=== PATIENT | female | born 2000 | race Caucasian/White ===

== ENCOUNTER 2024-07-10 17:47 | Emergency (ER) | payer BC, SELFPAY ==
[2024-07-10 17:54] VITALS: BP 132/79
--- NOTE | 2024-07-10 20:05 | ED.GENMED ---
History of Present Illness
General
Chief Complaint: Throat Problem
Source: patient
Exam Limitations: none
Time Seen by Provider: 07/10/24 19:44
Nursing documentation reviewed up to this point in time: agreed with
History of Present Illness
History of Present Illness:
24 yo female here for sore throat. Sore throat started one week ago, went to 3 days ago and had neg Strep and started on Z pack, she has one day left and throat is getting slightly worse. + swollen glands right side > left. Some relief with
Ibuprofen. Denies fever, chills, no significant fatigue. No difficulty swallowing, speaking with hot potato voice.
Past History
Past History
ED Past Medical History: Other (hx SV block)
ED Past Surgical History: Cardiac (Pacemaker 2013 for SV block)
Social History
Tobacco: Non-smoker
Review of Systems
Review of Systems
Allergies reviewed?: Yes
All Other Systems: ROS reviewed and negative except as documented in HPI and ROS
Constitutional: Denies fever or fatigue
EENT: Reports sore throat (with swollen lymph nodes)
Respiratory: Denies trouble breathing
Cardiac: Denies chest pain
ABD/GI: Denies abdominal pain, nausea, vomiting, diarrhea or anorexia
: Denies dysuria
Musculoskeletal: Reports no symptoms
Skin: Reports no symptoms
Neurological: Reports no symptoms
Phy Exam
Physical Exam
Physical Exam:
GENERAL: No acute distress. A&Ox3.
CONSTITUTIONAL: Afebrile.
EYES: clear, conjunctivae normal
ENMT: moist mucus membranes, Pharynx with R>L edematous tonsils with white exudate, malodorous. Swallowing well, Hot potato voice.
Neck: R > L anterior cervical lymphadenopathy
RESPIRATORY: Regular respirations, nonlabored, lungs clear.
CARDIOVASCULAR: Regular rate and rhythm, no murmurs, no rubs.
GI: Soft, nontender, normal BS
MUSCULOSKELETAL: Moves with ease. Well perfused.
SKIN: Warm, dry, pink
PSYCH: Normal mood and affect. Well kept, interactive and appropriate
NEUROLOGIC: Awake, alert and oriented. No focal neurological deficits
Course
Orders/Labs/Results
Orders:
Orders
07/10/24 20:10
Monotest Urgent
Rapid Strep Group A Urgent
MAIKOL Source: Throat/Pharynx
Specimen Description:
Date Specimen was Collected: 07/10/24
Time Specimen was Collected: 20:07
Throat Culture [Throat Culture, Comprehensive] Urgent
MAIKOL Source: Throat/Pharynx
Specimen Description:
Date Specimen was Collected: 07/10/24
Time Specimen was Collected: 20:07
07/10/24 21:08
Dexamethasone [Decadron] 10 mg PO NOW STA
Vital Signs
Initial and Last Documented VS:
Initial Vital Signs
Temp Pulse Resp BP Pulse Ox
98.6 F 106 20 132/79 100
07/10/24 17:54 07/10/24 17:54 07/10/24 17:54 07/10/24 17:54 07/10/24 17:54
Last Documented Vital Signs
Temp Pulse Resp BP Pulse Ox
98.6 F 94 17 132/79 99
07/10/24 17:54 07/10/24 21:27 07/10/24 21:27 07/10/24 17:54 07/10/24 21:27
MDM/Problems Addressed
Differential Diagnosis Includes:
Mononucleosis, strep throat, retropharyngeal abscess, peritonsillar abscess
MDM/Problems Addressed:
24 yo female here for sore throat. Sore throat started one week ago, went to UC 3 days ago and had neg Strep and started on Z pack, she has one day left and throat is getting slightly worse. + swollen glands right side > left. Some relief with
Ibuprofen. Denies fever, chills, no significant fatigue. No difficulty swallowing, speaking with hot potato voice.
Both tonsils are swollen with exudate and malodorous. No sign of abscess. R>L anterior cervical lymphadenopathy
Afebrile, NAD
Monotest neg
Rapid strep
*Critical Care Note
Total Time (30-74mins, 75-104mins- exclusive of procedures): Not Applicable
ED Attending Note
-
Portions of this chart may have been created with voice recognition software.� Occasional wrong word or��sound alike� substitutions may have occurred due to the inherent limitations of voice recognition software.
Discharge Plan
Departure
Patient Disposition: Home (Routine Discharge)
Date of Disposition: 07/10/24
Time of Disposition: 21:11
Patient with high blood pressure during this ER visit?: No
Condition: Good
Discharge Problem:
Acute pharyngitis
Instructions: Sore Throat, Adult (DC)
Prescriptions:
New
prednisone 20 mg tablet
40 mg PO DAILY Qty: 6 0RF
No Action
Control
1 tab PO DAILY
Referrals:
Jenifer Hernandez CRNP [Family Provider] - Follow up in 5-7 days
Activity Restrictions/Additional Instructions:
As we discussed, I sent a prescription to your pharmacy for prednisone to start tomorrow as you were given a dose of steroid here tonight.
Continue ibuprofen 600 mg, with food, every 6 hours as needed for sore throat
Drink plenty of fluids
Your throat culture is pending
This is most likely either a viral sore throat or one of the other strep infections.
The prednisone should help with the inflammation and swelling. See your doctor in 5 to 7 days if you are not much improved by then.
Return here immediately if you are unable to swallow your saliva, worse pain and swelling in tyour throat, you have a fever above 100.5 with no relief from Tylenol or ibuprofen or you feel sicker in any way.
Interventions
Interventions:
*Risk Screen - Suicide Last Done: 07/10/24 17:54
*General Assessment Last Done: 07/10/24 17:54
*Neglect/Abuse Screening Last Done: 07/10/24 17:54
ED- Fall Risk Assessment Last Done: 07/10/24 21:27
*ED COVID-19 Vaccine History Last Done: 07/10/24 21:27
*Nursing Disposition Last Done: 07/10/24 21:27
ED-EENT Assessment Last Done: 07/10/24 20:36
ED- Pulmonary Assessment Last Done: 07/10/24 20:36
Discharge Date and Time
Discharge Date/Time: 07/10/24 21:30
Print Language: ISRA[place]I
[2024-07-10 20:32] LABS: Monotest Negative (Negative)
[2024-07-10] MEDS: DECADRON 10 MG PO (21:20)
== END 2024-07-10 21:30 | disposition home or self-care (01) ==
LOC: EMR 17:47
PROVIDERS: Registered Nurse; EMERGENCY PHYSICIAN Emergency Medicine; FAMILY PHYSICIAN Nurse Practitioner Adult Health
DX: J02.9 Acute pharyngitis, unspecified (principal); R59.0 Localized enlarged lymph nodes; Z95.0 Presence of cardiac pacemaker
CPT/HCPCS: 99283; 86308; 87070; 87880

== ENCOUNTER 2025-05-09 20:52 | Emergency (ER) | payer BC, SELFPAY ==
[2025-05-09 20:58] VITALS: BP 122/88
[2025-05-09 21:25] LABS: Hematocrit 41.4 % (37.0-47.0); Hemoglobin 13.6 g/dL (12.0-16.0); Mean Corp Hgb Conc. 32.9 g/dL (33.0-37.0); Mean Corpuscular Volume 93.5 fL (81.0-99.0); Nucleated Red Blood Cells % 0 %; Platelet Count 294 10^3/uL (130-400); Red Cell Dist. Width 12.0 % (11.5-14.5)
[2025-05-09 21:32] LABS: HCG, Serum Qualitative Screen Negative
[2025-05-09 21:34] LABS: COVID-19 Antigen Negative (Negative)
[2025-05-09 21:38] LABS: ALT (SGPT) 14 U/L (0-35); AST (SGOT) 16 U/L (14-36); Albumin 4.3 g/dl (3.5-5.0); Alkaline Phosphatase 64 U/L (38-126); Blood Urea Nitrogen 9 mg/dl (7-17); Calcium 9.5 mg/dl (8.4-10.2); Carbon Dioxide 31 mmol/L (22-30); Chloride 103 mmol/L (98-107); Glucose 103 mg/dl (70-99); Potassium 4.5 mmol/L (3.5-5.1); Sodium 140 mmol/L (135-145); Total Protein 7.5 g/dl (6.3-8.2); eGFR > 60.00
[2025-05-09 23:48] VITALS: BP 113/78; BMI 30.1
--- NOTE | 2025-05-10 00:10 | ED.GENMED ---
History of Present Illness
General
Chief Complaint: Headache
Source: patient and spouse
Exam Limitations: none
Time Seen by Provider: 05/09/25 23:47
Nursing documentation reviewed up to this point in time: agreed with
History of Present Illness
History of Present Illness:
The patient is a 25-year-old female who presents with sinus congestion, nasal congestion, and a headache. These symptoms began 1 week ago. She reports that initially, the congestion was predominantly in one nostril, then the other and it lasted all
of last week, with significant nasal congestion and pressure but no sore throat nor cough nor fever. There was no noted fever, but she did experience difficulty speaking due to congestion. She states she was feeling slightly improved 1 to 2 days
ago but then symptoms worsened today prompting evaluation at urgent care where she was diagnosed with a sinus infection and prescribed doxycycline. She took the first dose at 4:30 PM today. She went to bed uneventfully but then awoke with
significant frontal and maxillary sinus pressure, pressure behind her eyes as well as increased pressure and a clogging sensation in her left ear. She continues to deny sore throat, no cough, no shortness of breath, no fever, no neck pain.
Her mother advised going to the emergency room for further evaluation.
The patient reports feeling some relief upon sitting upright.
She did try using a [place] pot once or twice over the past week without significant relief.
Her only daily medication is control pills.
No close contacts with similar symptoms.
No other associated symptoms.
Past History
Past History
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
ED Past Surgical History: Cardiac (Pacemaker 2015 for SV block)
Social History
Tobacco: Non-smoker
Alcohol: Occasional
Drug: None
Personal:
Living: with family
Family History
Family History: Other (Noncontributory)
Phy Exam
Physical Exam
Physical Exam:
GENERAL: 25-year-old female appears her stated age, she is bright and alert, pleasant, easily communicative and in no acute distress. is accompanying.
EYE: pupils equal and reactive. anicteric
NECK: Supple, nontender, no meningismus, minimal shotty left lateral cervical adenopathy that is minimally tender to palpation.
ENT: posterior pharynx is clear, oral mucosa is moist. Bilateral TMs are clear with mild clear effusion behind the right TM, moderate pearly effusion behind the left TM. External canals are clear. Nares have moderately boggy injected turbinates
bilaterally. There is mild bilateral maxillary sinus pain to palpation as well as mild frontal sinus pain to palpation. There is no facial edema nor erythema. No periorbital edema nor pain.
CARDIAC: Regular rate and rhythm. no murmur.
LUNGS: Clear breath sounds bilaterally, no acute respiratory distress, no wheezes/rales/rhonchi
ABDOMEN: Soft, nondistended, without focal tenderness
NEUROLOGICAL: Alert and oriented x3, no focal neuro deficits. Gait is gonzalez and steady.
SKIN: Warm and dry, normal color, skin intact. No rash.
MUSCULOSKELETAL: No C/C/E. peripheral pulses are full and equal b/l. No palpable tenderness.
PSYCH: Normal and appropriate interaction.
Course
Orders/Labs/Results
Orders:
Orders
05/09/25 21:04
Test Result ONCE
05/09/25 21:11
COVID-19 Antigen Urgent
Source: Nasal Swab
Complete Blood Count/With Diff Urgent
Comprehensive Metabolic Panel Urgent
HCG, Serum Qualitative Screen Urgent
Influenza A+B Rapid Molecular Urgent
MAIKOL Source: Nasal Swab
Specimen Description:
05/10/25 00:09
Prednisone [Deltasone] 50 mg PO NOW STA
05/10/25 00:09
Oxymetazoline HCl [Afrin Nasal [place]] See Dose Instructions NASAL NOW STA
Abnormal Lab Results
05/09/25
21:11
MCHC 32.9 L g/dL
(33.0-37.0)
Carbon Dioxide 31 H mmol/L
(22-30)
Creatinine 0.5 L mg/dL
(0.6-1.0)
Glucose 103 H mg/dl
(70-99)
Total Bilirubin 0.1 L mg/dl
(0.2-1.3)
05/09/25 21:11
05/09/25 21:11
Vital Signs
Initial and Last Documented VS:
Initial Vital Signs
Temp Pulse Resp BP Pulse Ox
98.4 F 112 20 122/88 99
05/09/25 20:58 05/09/25 20:58 05/09/25 20:58 05/09/25 20:58 05/09/25 20:58
Last Documented Vital Signs
Temp Pulse Resp BP Pulse Ox
98.4 F 112 20 113/78 98
05/09/25 20:58 05/09/25 20:58 05/09/25 20:58 05/09/25 23:48 05/09/25 23:50
MDM/Problems Addressed
Differential Diagnosis Includes:
The Differential Diagnosis includes, in no particular order and is not limited to:
1. Acute sinusitis
2. Viral upper respiratory infection
3. Allergic rhinitis
4. Migraine headache
5. Tension headache
6. Cluster headache
7. Dental abscess
8. Otitis media
9. Chronic sinusitis
10. Deviated septum
MDM/Problems Addressed:
Acute sinus congestion/frontal headache. Ongoing for 1 week.
History and exam consistent with acute sinusitis and with worsening symptoms for more than 1 week as well as evidence of serous otitis media I do agree with initiation of antibiotics.
Sinus congestion worsened with supine positioning. There is no evidence of allergic reaction on exam.
Labs are reassuring, within normal limits.
Could consider imaging/sinus imaging/CT of the head but overall very well in appearance. No prior history of sinus infections/frequent infections.
Recommend she continue doxycycline and will add a short course of oral steroids to reduce inflammation.
Will add a short course of Afrin nasal spray to assist with nasal congestion. Discussed importance of discontinuing Afrin after 3 to 4 days.
Other supportive measures discussed including elevating head of bed, using Vicks vapor rub.
Tylenol versus ibuprofen as needed for pain.
Prompt follow-up with PCP for recheck.
Return precautions discussed.
Chronic conditions affecting care: Other (History of congenital cardiac conduction abnormality status post pacemaker 2014. No complications.)
*Pulse Oximetry
SaO2: 98
Oxygen Mode of Delivery: Room air
Patient hypoxic: no
*Critical Care Note
Total Time (30-74mins, 75-104mins- exclusive of procedures): Not Applicable
ED Attending Note
-
Portions of this chart may have been created with voice recognition software.� Occasional wrong word or��sound alike� substitutions may have occurred due to the inherent limitations of voice recognition software.
Discharge Plan
Departure
Patient Disposition: Home (Routine Discharge)
Date of Disposition: 05/10/25
Time of Disposition: 00:24
Patient with high blood pressure during this ER visit?: No
Condition: Good
Discharge Problem:
acute sinus headache, Acute sinusitis, Acute serous otitis media of both ears
Instructions: Sinusitis in adults - ED (DC)
Prescriptions:
New
prednisone 20 mg tablet
40 mg PO DAILY Qty: 10 0RF
No Action
Control
1 tab PO DAILY
prednisone 20 mg tablet
40 mg PO DAILY Qty: 6 0RF
Referrals:
Jenifer Hernandez CRNP [Family Provider, General] - Call in 1-3 days for appt
Activity Restrictions/Additional Instructions:
Continue doxycycline as prescribed until finished
Continue Afrin/oxymetazoline nasal spray, 2 sprays each nostril twice daily over the next 3 to 4 days.
You have been prescribed prednisone to take 2 tablets once daily over the next 5 days.
Elevate head of bed at nighttime and along with this you can try Vicks vapor rub to your nasal entrances at nighttime to help with sinus congestion/pressure.
You can take Tylenol versus ibuprofen as needed for headache/discomfort.
Follow-up with your primary care physician for recheck, especially if symptoms persist despite above measures.
Interventions
Interventions:
*Risk Screen - Suicide Last Done: 05/09/25 21:02
*General Assessment Last Done: 05/09/25 21:03
*Neglect/Abuse Screening Last Done: 05/09/25 21:03
*ED- Fall Risk Assessment Last Done: 05/09/25 20:58
*ED COVID-19 Vaccine History Last Done: 05/09/25 20:58
*ED Influenza Vaccine History Last Done: 05/09/25 20:58
ED- Neurological Assessment Last Done: 05/09/25 23:50
Discharge Date and Time
Print Language: [place]
[2025-05-10] MEDS: AFRIN NASAL SPRAY 2 SPRAYS NASAL (00:21)
[2025-05-10] MEDS: DELTASONE 50 MG PO (00:21)
== END 2025-05-10 00:33 | disposition home or self-care (01) ==
LOC: EMR 20:52
PROVIDERS: Emergency Medicine; EMERGENCY PHYSICIAN Emergency Medicine; FAMILY PHYSICIAN Nurse Practitioner Adult Health
DX: R51.9 Headache, unspecified (principal); J01.90 Acute sinusitis, unspecified; H65.03 Acute serous otitis media, bilateral; Z79.3 Long term (current) use of hormonal contraceptives; Z95.0 Presence of cardiac pacemaker
CPT/HCPCS: 99283; 80053; 84703; 85025; 87502; 87811